=== PATIENT | female | born 1995 | race Caucasian/White ===

== ENCOUNTER 2025-04-06 08:10 | Emergency (ER) | payer OTHER, SELFPAY ==
[2025-04-06 08:12] VITALS: BP 110/64
[2025-04-06 09:13] LABS: Urine Character Clear (Clear)
[2025-04-06 09:16] LABS: HCG, Urine Qualitative Screen Negative
[2025-04-06 09:25] LABS: Urine Squamous Cell 16-20 /LPF (Few)
[2025-04-06 09:26] LABS: Urine Red Blood Cell 0-2 /HPF (0-2); Urine White Cell None Seen /HPF (0-5)
[2025-04-06] MEDS: MAALOX 50 PO (09:33)
[2025-04-06] MEDS: ZOFRAN 4 MG IV (09:34)
[2025-04-06 09:40] LABS: Hematocrit 31.3 % (37.0-47.0); Hemoglobin 9.6 g/dL (12.0-16.0); Mean Corp Hgb Conc. 30.7 g/dL (33.0-37.0); Mean Corpuscular Volume 79.4 fL (81.0-99.0); Nucleated Red Blood Cells % 0 %; Platelet Count 155 10^3/uL (130-400); Red Cell Dist. Width 15.2 % (11.5-14.5)
[2025-04-06 10:03] LABS: ALT (SGPT) 16 U/L (0-35); AST (SGOT) 22 U/L (14-36); Albumin 4.7 g/dl (3.5-5.0); Alkaline Phosphatase 35 U/L (38-126); Blood Urea Nitrogen 14 mg/dl (7-17); Calcium 9.1 mg/dl (8.4-10.2); Carbon Dioxide 24 mmol/L (22-30); Chloride 109 mmol/L (98-107); Glucose 94 mg/dl (70-99); Lipase 55 U/L (23-300); Potassium 4.7 mmol/L (3.5-5.1); Sodium 140 mmol/L (135-145); Total Protein 7.7 g/dl (6.3-8.2); eGFR > 60.00
--- NOTE | 2025-04-06 10:06 | ED.GENMED ---
History of Present Illness
General
Chief Complaint: Abdominal Symptoms
Source: patient and spouse
Exam Limitations: none
Time Seen by Provider: 04/06/25 08:50
Nursing documentation reviewed up to this point in time: agreed with except (Patient denies any fever on my assessment)
History of Present Illness
History of Present Illness:
Patient is a 30-year-old female who presents to the emergency department with 10 days of upper abdominal pain. Patient describes a constant discomfort in her upper abdomen over the past 10 days. There is occasional radiation to her back. Symptoms
worse after eating and associated w/ nausea. She also describes a metallic/abnormal taste in her mouth. She denies any vomiting or fevers. No dark or bloody stools. No diarrhea. She denies any dysuria or hematuria. No abnormal vaginal
bleeding/discharge.
She denies any exertional chest pain or shortness of breath.
She was seen by her primary care provider about 1 week ago for similar symptoms who started on a course of pantoprazole. She has yet to notice any improvement in symptoms.
In addition, patient describes generalized discomfort of her breasts. She has not noticed any redness or warmth. This is also been occurring over the past few weeks. Her last menstrual cycle was 'a few weeks ago'.
Patient has a history of anemia.
Review of Systems
Review of Systems
Allergies reviewed?: Yes
All Other Systems: ROS reviewed and negative except as documented in HPI and ROS
Phy Exam
Physical Exam
Physical Exam:
Vitals: Patient's vital signs are stable. Afebrile
General: Patient is well appearing, no acute distress
Skin: Warm and dry, no rashes or lesions
Head: Normocephalic, atraumatic
Eyes: Sclera nonicteric. EOMs intact. No nystagmus.
Throat: Posterior pharynx non-erythematous. Uvula midline. Protecting airway
Neck: Normal ROM, no cervical spine tenderness, no meningismus
Cardiac: Regular rate and rhythm, no murmurs.
Chest: Mild diffuse tenderness of breasts bilaterally. No erythema or warmth of skin. No areas of induration or fluctuance. No palpable mass.
Pulm: Normal respiratory effort. Lungs clear bilaterally.
Abdomen: Abdomen soft. Mild epigastric tenderness. No rebound or guarding. Negative Dao sign. No focal tenderness at McBurneys point.
Extremities: No evidence of cyanosis or edema
Neuro: AAOx3. Grossly intact
Psychiatric: Normal affect.
Course
Orders/Labs/Results
Orders:
Orders
04/06/25 08:31
Test Result ONCE
04/06/25 09:01
, Urine Qualitative Screen [HCG, Urine Qualitative Screen] Urgent
Date Specimen was Collected: 04/06/25
Time Specimen was Collected: 08:46
Urinalysis Reflex To Culture Urgent
Date Specimen was Collected: 04/06/25
Time Specimen was Collected: 08:46
Urine Microscopic Reflex Cult Urgent
04/06/25 09:13
Mag Hydrox/Al Hydrox/Simeth [Maalox] 30 ml Phenobarb/Hyoscy/Atropine/Scop [] 10 ml Viscous Lidocaine 2% [Xylocaine Viscous Cup] 10 ml PO NOW
Ondansetron Injectable [Zofran] 4 mg IV NOW STA
US Abdomen Complete/Upper Urgent
Comment:
Reason For Exam: Epigastric pain
04/06/25 09:14
Electrocardiogram (*1) Urgent
Reason for Study: Abdominal Pain
EKG- Treatment ONCE
04/06/25 09:30
Complete Blood Count/With Diff Urgent
Comprehensive Metabolic Panel Urgent
Lipase Urgent
04/06/25 09:32
Mag Hydrox/Al Hydrox/Simeth [Maalox] 30 ml .ROUTE .STK-MED ONE
Phenobarb/Hyoscy/Atropine/Scop [] 10 ml .ROUTE .STK-MED ONE
Viscous Lidocaine 2% [Xylocaine Viscous Cup] 15 ml .ROUTE .STK-MED ONE
04/06/25 10:58
Famotidine [Pepcid] 20 mg IV NOW STA
Ketorolac [Toradol] 15 mg IV NOW STA
Abnormal Lab Results
04/06/25 04/06/25
09:01 09:30
WBC 3.6 L 10^3/uL
(4.8-10.8)
RBC 3.94 L 10^6/uL
(4.20-5.40)
Hgb 9.6 L g/dL
(12.0-16.0)
Hct 31.3 L %
(37.0-47.0)
MCV 79.4 L fL
(81.0-99.0)
MCH 24.4 L pg
(27.0-31.0)
MCHC 30.7 L g/dL
(33.0-37.0)
RDW 15.2 H %
(11.5-14.5)
MPV 11.9 H fL
(7.4-10.4)
Chloride 109 H mmol/L
(98-107)
Alkaline Phosphatase 35 L U/L
(38-126)
Urine Bacteria (Reflex) Few A
(Negative)
Urine Albumin (Reflex) 1+ A
(Neg - Trace)
04/06/25 09:30
04/06/25 09:30
Vital Signs
Initial and Last Documented VS:
Initial Vital Signs
Temp Pulse Resp BP Pulse Ox
98.4 F 74 18 110/64 97
04/06/25 08:12 04/06/25 08:12 04/06/25 08:12 04/06/25 08:12 04/06/25 08:12
Last Documented Vital Signs
Temp Pulse Resp BP Pulse Ox
98.4 F 74 18 110/64 97
04/06/25 08:12 04/06/25 08:12 04/06/25 08:12 04/06/25 08:12 04/06/25 10:06
MDM/Problems Addressed
Differential Diagnosis Includes:
Not limited to: Gastritis, GERD, pancreatitis, biliary colic, acute cholecystitis, fibrocystic breast disease, hormonal changes, breast abscess, etc.
MDM/Problems Addressed:
30 year year-old female presenting with 10 days of epigastric abdominal pain and metallic taste in mouth. Also with mild bilateral breast tenderness. Vitals and physical exam as above.
Patient has only mild tenderness in epigastric region without rebound or guarding. Negative Dao sign. No focal tenderness at McBurney�s point or lower abdomen. Possible gastritis or GERD- especially with metallic taste in mouth. Considered
possible biliary colic however feel less likely. Do not suspect cardiac etiology, however, will screen with EKG.
Will check labs, abdominal ultrasound. Will give G.I. cocktail.
Update: Labs reviewed. Mild leukopenia. Anemia noted however patient states is baseline. She denies any recent dark or bloody bowel movements. She declines rectal exam. Chemistry panel unremarkable. HCG negative. Urine without evidence of infection.
Abdominal ultrasound with small gallbladder polyps noted however, no evidence of other acute abnormalities.
Clinical picture seems most consistent with gastritis/ GERD. Do not suspect acute infectious or intra-abdominal pathology. Given benign abdominal exam and negative workup thus far - will hold off on CT at this time. Feel stable for discharge with
outpatient primary care/G.I. follow up. She may require endoscopy. She already has prescription for pantoprazole prescribed by PCP - will add carafate. Strict return precautions discussed.
In regard to breast discomfort � there are no no areas of erythema, warmth or focal tenderness. There is no induration, fluctuance or evidence of abscess. No focal palpable mass.Symptoms seem to be intermittent. Possible fibrocystic changes or
related to hormonal fluctuations throughout menstrual cycle. Advised follow up with [employer] outpatient for possible ultrasound/mammogram.
Chronic conditions affecting care:
N/A
Acute Exacerbation and/or Progression of Chronic Illness:
N/A
*Radiology
Radiology exam reviewed: radiology read reviewed
*Pulse Oximetry
SaO2: 97
Oxygen Mode of Delivery: Room air
Patient hypoxic: no
*EKG
Interpreted by ED Provider?: Yes
EKG Intrepretation Date: 04/06/25
Interpretation: normal
Comparison EKG: no comparison EKG present
Heart Rate: 62
Rate: normal
Rhythm: sinus
Jachin: right axis deviation
Interval: normal QT interval
QRS Pattern: low voltage and right bundle branch block (incomplete right bundle branch block)
Ischemia: no ischemia
*[employer] Interpretation
Rate: [employer]- N/A
*Critical Care Note
Total Time (30-74mins, 75-104mins- exclusive of procedures): Not Applicable
ED Attending Note
-
Portions of this chart may have been created with voice recognition software.� Occasional wrong word or��sound alike� substitutions may have occurred due to the inherent limitations of voice recognition software.
Discharge Plan
Departure
Patient Disposition: Home (Routine Discharge)
Date of Disposition: 04/06/25
Time of Disposition: 11:50
Patient with high blood pressure during this ER visit?: No
Condition: Good
Discharge Problem:
Epigastric abdominal pain, GERD (gastroesophageal reflux disease)
Instructions: Acid reflux and GERD in adults - ED (DC)
Prescriptions:
New
sucralfate [Carafate] 1 gram tablet
1 g PO QID Qty: 30 0RF
Rx Instructions:
Take 1 tablet before each meal and 1 hr prior to bed
No Action
pantoprazole 40 mg Tablet,Delayed Release (Dr/Ec)
40 mg PO DAILY
ergocalciferol (vitamin D2) 1,250 mcg (50,000 unit) Capsule
1,250 mcg PO QWEEK
ferrous sulfate 325 mg (65 mg iron) Tablet,Delayed Release (Dr/Ec)
325 mg PO DAILY
Referrals:
Bud Islas MD [Active, Gastroenterology]
Bradford Carreon MD [Family Provider, Internal Medicine]
Keisha Dennison MD [Active, Gynecology]
Activity Restrictions/Additional Instructions:
RETURN TO THE EMERGENCY DEPARTMENT WITH ANY PERSISTENT/WORSENING ABDOMINAL PAIN, CHEST PAIN OR SHORTNESS OF BREATH, INTRACTABLE VOMITING, WORSENING IN CURRENT SYMPTOMS, OR ANY OTHER CONCERNS
- As discussed -you were found to be anemic today with a hemoglobin of 9.6. Although you state that this is your baseline, please have your labs repeated with your primary care to ensure hemoglobin remains stable. Return with any dark stool or
evidence of bleeding. Continue to take iron supplements as directed.
- I suspect that your upper abdominal discomfort is likely secondary to acid reflux/gastritis. Continue to take pantoprazole as prescribed by your primary care. I sent a prescription for Carafate which you can take before each meal and prior to
bed. I would recommend a bland diet and limiting high acidity foods including coffee and alcohol.
- Follow-up with a breakfast attendant for further evaluation/management and to ensure that your symptoms are improving. You may require an endoscopy for better visualization.
- Please follow-up with an [employer] for further evaluation of your breast discomfort. You may require ultrasound and/or mammogram imaging. Return with any redness, worsening pain, fevers.
Monitor your symptoms closely and return to the emergency department with any acute worsening/new symptoms or any other concerns
Interventions
Interventions:
*Risk Screen - Suicide Last Done: 04/06/25 09:07
*Neglect/Abuse Screening Last Done: 04/06/25 09:07
*Nursing Disposition Last Done: 04/06/25 12:06
[id number] Assessment Last Done: 04/06/25 09:07
Discharge Date and Time
Discharge Date/Time: 04/06/25 12:07
Print Language: VIET[place]ESE
[2025-04-06] MEDS: TORADOL 15 MG IV (11:04)
[2025-04-06] MEDS: PEPCID 20 MG IV (11:04)
== END 2025-04-06 12:07 | disposition home or self-care (01) ==
LOC: EMR 08:10
PROVIDERS: Physician Assistant; EMERGENCY PHYSICIAN Student in an Organized Health Care Education/Training Program; FAMILY PHYSICIAN Internal Medicine
DX: K21.9 Gastro-esophageal reflux disease without esophagitis (principal); D72.819 Decreased white blood cell count, unspecified; D64.9 Anemia, unspecified; I45.10 Unspecified right bundle-branch block
CPT/HCPCS: 99284; 96374; 96375 ×2; 76700; 80053; 81003; 81015; 81025; 83690; 85025; 93005